=== PATIENT | male | born 1970 ===

== ENCOUNTER 2025-04-01 05:31 | Emergency (ER) | payer SELFPAY ==
[2025-04-01 05:31] VITALS: BP 150/90; PULSE 92; RESP 18; TEMP 36.9; O2SAT 99; BMI 38.7
--- NOTE | 2025-04-01 05:41 | W.ED.ANXIETY ---
HPI - Anxiety General: Chief Complaint: Anxiety Stated Complaint: Anxiety Time Seen by Provider: 04/01/25 05:41 History of Present Illness: Patient is a 54-year-old male who presented to the ED with anxiety and insomnia after running out of his prescribed sleep medications. The patient reports he is traveling through the area, attempting to return to his home in [place] from [place] to attend a celebration of life for his father who last year. He states he ran out of his trazodone and hydroxyzine the night before and was unable to sleep. [facility] [place] [facility] his medications but was unsuccessful. The patient reports he has been on a regimen of trazodone 50mg and hydroxyzine 100mg at bedtime for approximately one year to manage his chronic anxiety and insomnia. He describes his mind as like a tornado without medication, stating the trazodone helps him focus while the hydroxyzine helps him fall asleep. He reports that when he misses either medication, he is unable to sleep. The patient became increasingly anxious after spending the night at a truck stop without sleep and called for assistance. He denies any suicidal ideation or thoughts of self-harm. Related Data Previous Rx's ?Medication ?Instructions ?Recorded hydroxyzine HCl 50 mg tablet 100 mg (2 x 50 mg) PO BEDTIME #6 04/01/25 tabs trazodone 150 mg tablet 150 mg PO BEDTIME #5 tabs 04/01/25 Allergies Allergy/AdvReac Type Severity Reaction Status Date / Time Penicillins Allergy ALGY-Rash Verified 04/01/25 05:40 Course Vital Signs: Vital signs: Vital Signs Temperature 98.4 F 04/01/25 05:31 Pulse Rate 92 04/01/25 05:31 Respiratory Rate 18 04/01/25 05:31 Blood Pressure 150/90 04/01/25 05:31 Pulse Oximetry 99 04/01/25 05:31 Oxygen Delivery Me thod Room Air 04/01/25 05:31 MDM - Anxiety Medical Decision Making ROS: Constitutional: Denies fever, chills. Reports fatigue due to lack of sleep. Psychiatric: Reports anxiety and insomnia. Denies suicidal ideation, homicidal ideation, or thoughts of self-harm. Cardiovascular: Denies chest pain, palpitations. Respiratory: Denies shortness of breath, cough. Neurological: Denies headache, dizziness, focal weakness. All other systems reviewed and negative. MEDICATIONS AND ALLERGIES: Medications: - Trazodone 150mg at bedtime - Hydroxyzine 100mg at bedtime - Lisinopril (dose not specified) - Humulin insulin - Humalog insulin - NovoLog insulin - Ibuprofen 800mg - Buspirone 5mg and 10mg (patient reports taking 5mg for anxiety related to [place]) Allergies: - Penicillin (reaction not specified) PAST HISTORICAL DATA: PMH: Anxiety disorder, insomnia, diabetes mellitus requiring insulin, hypertension PSH: None reported Social History: Denies current tobacco use, alcohol use, or drug use. Reports history of substance use in his twenties but none currently. Patient lives in [place], [place] and is currently traveling through the area. He is in the process of applying for disability in [place]. Family History: Father (details not provided) VITAL SIGNS: BP: 150/90 HR: 92 RR: 18 Temp: 98.4?F O2 Sat: 99% on room air PHYSICAL EXAM: General: 54-year-old male, slightly anxious, somewhat bloodshot eyes, but in no acute distress. HEENT: Head normocephalic and atraumatic. Mucous membranes moist. Neck: Supple. Respiratory: No increased work of breathing. No wheezing. Cardiac: Regular rate and rhythm. Equal pulses in all four extremities. Abdomen: Soft, non-distended, no rebound or guarding. Neuro: Cranial nerves grossly intact, no focal motor or sensory deficits noted. Psychiatric: Patient is anxious, somewhat manic in presentation but appropriate. Answers questions appropriately. Denies suicidal ideation or thoughts of self-harm. INITIAL IMPRESSION AND PLAN: Given the history and presentation, the primary working diagnosis is anxiety with insomnia due to medication non-adherence (ran out of prescribed medications). Additional considerations include panic disorder and potential sleep deprivation affecting judgment and safety. Based on this initial impression I will: 1. Provide prescriptions for trazodone 50mg and hydroxyzine 100mg as requested 2. Encourage patient to get adequate sleep before continuing his journey 3. Assess for any acute psychiatric concerns requiring intervention 4. Evaluate safety for discharge CONSIDERED BUT NOT PERFORMED: Psychiatric consultation CONSIDERED but NOT DONE due to patient's denial of suicidal ideation, appropriate interaction, and no evidence of danger to self or others. Patient demonstrates good insight into his condition and needs. FINAL IMPRESSION: Based on all the above, my clinical impression is most compatible with anxiety disorder with insomnia due to medication non-adherence (ran out of prescribed medications). The clinical picture is not currently suggestive of acute psychiatric emergency, suicidal ideation, or substance abuse. Although other conditions were also considered, they were deemed unlikely based on the clinical information available. CLINICAL DISPOSITION: The patient's current condition is stable in my estimation and the most appropriate and indicated disposition at this time is discharge with medication prescriptions. The patient is safe for discharge as he demonstrates no acute psychiatric emergency, denies suicidal ideation, and is requesting appropriate medication refills for his documented anxiety and insomnia. His vital signs are stable, and he is alert and oriented. He has a clear plan to rest before continuing his journey, which demonstrates appropriate judgment. The patient has been counseled on the importance of maintaining his medication regimen and getting adequate sleep before driving. RISK STRATIFICATION AND CLINICAL DECISION RULES APPLIED: No formal clinical decision rules were applied in this case as the presentation was straightforward and did not warrant specific risk stratification tools. CASE SUMMARY: 54-year-old male with history of anxiety and insomnia presented to the ED after running out of his prescribed trazodone and hydroxyzine. Patient is traveling from [place] to [place] and became anxious after being unable to sleep without his medications. He denied suicidal ideation or thoughts of self-harm. Physical examination revealed a slightly anxious male with stable vital signs. Patient was provided with prescriptions for his medications and counseled on the importance of getting adequate rest before continuing his journey. He was deemed safe for discharge with appropriate follow-up instructions. No radiology studies performed this visit Discharge Plan Discharge Patient Disposition: Home Clinical Impression: Acute anxiety Condition: Stable Prescriptions: New hydroxyzine HCl 50 mg tablet 100 mg PO BEDTIME Qty: 6 1RF trazodone 150 mg tablet 150 mg PO BEDTIME Qty: 5 1RF Discharge Orders: Discharge ED (Routine); Ordered 04/01/25 Ordered By: Isreal Sethi Discharge Activity: Resume usual activity Patient Instructions: Anxiety (ED), Opioid Safety, Pain Management Activity Restrictions/Additional Instructions: Diagnosis: Anxiety with insomnia due to medication non-adherence Medications: - Continue trazodone 50mg by mouth at bedtime as prescribed - Continue hydroxyzine 100mg by mouth at bedtime as prescribed - Continue all other home medications as previously prescribed Instructions: 1. Fill your prescriptions as soon as possible 2. Get adequate sleep before continuing your journey to [place] 3. Take your medications as prescribed and ensure you have enough supply for your entire trip 4. Consider planning your route to include pharmacies where you can refill medications if needed Follow up: - Follow up with your primary care provider or mental health provider in [place] - Continue your established care for anxiety management Return to the nearest emergency department if you experience: - Thoughts of harming yourself or others - Severe anxiety that cannot be controlled with your medications - Any new or concerning symptoms Print Language: Wallisian Coding Level of Care Code ED Environmental Service Aide for Ellen Mercedes
[2025-04-01] MEDS: OLANZapine 5 mg ODT PO (05:53)
[2025-04-01 06:04] VITALS: BP 145/89; PULSE 92; RESP 18; O2SAT 98
== END 2025-04-01 05:55 | disposition home or self-care (01) ==
PROVIDERS: Emergency Provider Student in an Organized Health Care Education/Training Program
DX: F41.8 Other specified anxiety disorders (principal)
CPT/HCPCS: 99283; J9999